=== PATIENT | female | born 1960 | race Caucasian/White ===

== ENCOUNTER 2016-10-25 05:41 | Day surgery (SDC) | payer MEDICARE ==
[2016-10-24 09:32] LABS: HEMATOCRIT 41.7 % (36.0-48.0); HEMOGLOBIN 13.5 g/dL (12-16); MCH 30.5 pg (26.0-34.0); MCHC 32.4 g/dL (31.0-37.0); MCV 94.3 fL (80.0-100.0); MEAN PLATELET VOLUME 14.3 fL (7.4-10.4); RBC 4.42 10x6/uL (4.00-5.40); RDW 13.4 % (11.5-14.5); WBC 5.6 10x3/uL (4.8-10.8)
[2016-10-24 09:39] LABS: ANION GAP 9.1 mmol/L (8-16); CALCIUM 8.8 mg/dL (8.5-10.1); CARBON DIOXIDE 33.1 mmol/L (21.0-32.0); CREATININE - SERUM 1.3 mg/dL (0.6-1.3); POTASSIUM - SERUM 3.2 mmol/L (3.5-5.1)
[~2016-10-25] VITALS: Ht 167.6 cm; Wt 81.2 kg
[~2016-10-25 05:41] MED LIST: ACTOS30 MG PO; ALENDRONATE SOD70 MG PO; BONTRIL SLOW-R105 MG PO; CELEXA10 MG PO; CELEXA40 MG PO; DEXILANT60 MG PO; DILAUDID4 MG PO; DILAUDID8 MG PO; FLUTICASONE PRO16 GM NASAL; GLIPIZIDE10 MG PO; GLUCOPHAGE1000 MG PO; GLUCOTROL 5 MG T5 MG PO; HUMALOG MIX 75/23 ML SC; HUMULIN N100 U/ML SC; LANTUS INSULIN10 ML SC; LASIX20 MG PO; LISINOPRIL5 MG PO; NEURONTIN 300300 MG PO; NORVASC10 MG PO; PLAVIX75 MG PO; PRAVACHOL20 MG PO; PRAVACHOL40 MG PO; PROAIR HFA8.5 GM INH; TANZEUM50 MG/0.5 SC; VALIUM5 MG PO; ZANAFLEX4 MG PO
[2016-10-25 07:55] VITALS: BP 127/70; Ht 167.6 cm; Wt 81.2 kg
[2016-10-25] MEDS ORDERED: DILAUDID2 MG PO (10:01)
--- NOTE | 2016-10-25 10:24 | NUR ---
SCOPE PATCH BEHIND LT EAR ON ADMIT
--- NOTE | 2016-10-25 11:39 | NUR ---
IV DC WITH CATHER TIP INTACT
--- NOTE | 2016-10-29 17:08 | OP ---
PATIENT NAME: ZACKERY MORAN MEDICAL RECORD: [id number] :58 LOCATION:[facility] ADMISSION DATE: SURGEON: ARACELI MCKEON MD DATE OF OPERATION: 10/25/2016 PREOPERATIVE DIAGNOSES: Impingement syndrome of the right shoulder with biceps tendinitis, right elbow arthritis and acromioclavicular arthritis. POSTOPERATIVE DIAGNOSES: Impingement syndrome of the right shoulder with biceps tendinitis, right elbow arthritis and acromioclavicular arthritis. PROCEDURES: 1. Arthroscopic biceps tenotomy, right shoulder. 2. Arthroscopic distal clavicle excision, right shoulder. 3. Arthroscopic subacromial decompression, acromioplasty and bursectomy. 4. Cortisone injection into the right shoulder. 5. Cortisone injection into the right elbow. OPERATIVE SUMMARY IN DETAIL: After obtaining the appropriate orthopedic surgery consents as well as anesthetic consultation, evaluation and clearance, the patient was brought to the operating room and placed on the operating table in supine position. After general laryngeal mask was administered, the patient was placed in left lateral decubitus position. All pressure points were well padded to include down leg peroneal pad as well as axillary roll. The patient was held firmly to the operating table using the vacuum pack suction system. Right upper extremity and shoulder were then prepped and draped in routine sterile fashion. The arm was held in the Arthrex traction boom at 30 degrees of forward flexion, 30 degrees of abduction, 10 pounds of traction laterally. Arthroscopy was established in the glenohumeral joint from a posterior portal. Anterior portal was established in the anterior safe interval. Diagnostic arthroscopy did reveal the above findings. Surface tissue ablation system was utilized to tenotomize the biceps tendon at the root given the patient's severe biceps tendinitis. Attention was then turned to the subacromial space. While on the subacromial space, the patient was found to have a large downward sloping acromion with excoriation of the coracoacromial ligament. Surface tissue ablation system was utilized to denude the undersurface of the acromion of all soft tissue elements. A 5-0 barrel tawnya was used to perform acromioplasty of the acromioclavicular joint. Under separate arthroscopic portal anteriorly with arthroscopic visualization, the distal clavicle was excised for 1 cm. Having completed this, arthroscopy portals were closed in routine interrupted fashion using a 4-0 Prolene. An 18-gauge needle was then placed into the shoulder joint and a combination of 40 mg Depo-Medrol and 5 cc of 0.25% Marcaine were injected into the shoulder. At this point, the elbow already having been prepped and draped, a 22-gauge needle was then used to inject the right elbow with the same 40 mg Depo-Medrol and 5 cc 0.25 % lidocaine. Having completed this, sterile dressings were applied. The patient was awakened and taken to the recovery room in stable condition. All final needle and sponge counts were correct. TRANSINT:[id number] Voice Confirmation ID: [id number] DOCUMENT ID: [id number] OPERATIVE REPORT [id number] ZACKERY MORAN MD, ARACELI COVINGTON at 1708 CC: [id number] DICTATION DATE: 10/25/16 1005 CLINICAL REVIEWER: 10/25/16 1052 [place] [facility] [place] [id number] [place] [address]
== END 2016-10-25 12:00 | disposition home or self-care (01) ==
LOC: D.OPS 05:41 → D.PAN 09:15 → D.OPS 10:05 → D.PAN 12:00
PROVIDERS: Anesthesiology
DX: M75.41 Impingement syndrome of right shoulder (principal); M75.21 Bicipital tendinitis, right shoulder; M13.811 Other specified arthritis, right shoulder; M13.821 Other specified arthritis, right elbow

== ENCOUNTER 2017-01-07 14:30 | Emergency (ER) | payer MEDICARE ==
[2016-10-25 07:55] VITALS: BMI 28.9
[~2017-01-07 14:30] MED LIST changes: +DILAUDID2 MG PO
== END 2017-01-07 16:27 | disposition left against medical advice (07) ==
LOC: D.ER 14:30
DX: I95.9 Hypotension, unspecified (principal); M54.2 Cervicalgia; E11.9 Type 2 diabetes mellitus without complications; J44.9 Chronic obstructive pulmonary disease, unspecified; I10 Essential (primary) hypertension

== ENCOUNTER 2017-12-12 07:53 | Day surgery (SDC) | payer MEDICARE ==
[2017-12-11 08:37] LABS: HEMATOCRIT 39.7 % (36.0-48.0); HEMOGLOBIN 12.6 g/dL (12-16); MCHC 31.7 g/dL (31.0-37.0); MCV 97.8 fL (80.0-100.0); MEAN PLATELET VOLUME 13.2 fL (7.4-10.4); RBC 4.06 10x6/uL (4.00-5.40); RDW 12.9 % (11.5-14.5); WBC 4.8 10x3/uL (4.8-10.8)
[2017-12-11 08:50] LABS: ANION GAP 10.3 mmol/L (8-16); CALCIUM 8.6 mg/dL (8.5-10.1); CARBON DIOXIDE 33.1 mmol/L (21.0-32.0); POTASSIUM - SERUM 3.4 mmol/L (3.5-5.1)
[~2017-12-12] VITALS: Ht 167.6 cm; Wt 79.4 kg
--- NOTE | ~2017-12-12 | OP ---
PATIENT NAME: ZACKERY MORAN MEDICAL RECORD: [id number] :58 LOCATION:D.OPS ADMISSION DATE: SURGEON: ARACELI MCKEON MD DATE OF OPERATION: 12/12/2017 PREOPERATIVE DIAGNOSIS: Impingement syndrome of the left shoulder. POSTOPERATIVE DIAGNOSES: Impingement syndrome of the left shoulder plus SLAP lesion. PROCEDURES: 1. Arthroscopic SLAP repair. 2. Arthroscopic distal clavicle excision done through separate incision -- 1 cm. 3. Arthroscopic subacromial decompression. SURGEON: Araceli Mckeon MD ANESTHESIA: General. INTRAOPERATIVE COMPLICATIONS: None. SUMMARY OF PATHOLOGIC FINDINGS: Upon entering the glenohumeral joint, the patient had a superior labral tear from anterior to posterior consistent with the patient's pain; however, not clearly seen on the preoperative MRI. The patient also had a downward sloping acromion with excoriation of the coracoacromial ligament and superficial rotator cuff abrasions, but not tearing, were noted. 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 OPERATIVE SUMMARY IN DETAIL: After obtaining the appropriate preoperative orthopedic surgery consent as well as anesthetic consultation, evaluation and clearance, the patient was brought to the operating room and placed on the operating table in supine position. After general laryngeal mask airway was administered, the patient was placed in left lateral decubitus position. All pressure points were well padded to include down leg peroneal pad as well as axillary roll. The patient was held firmly to the operating table using the vacuum pack suction system. Left upper and shoulder were then prepped and draped in routine sterile fashion. The arm was held in the Arthrex traction boom at 30 degrees of forward flexion, 30 degrees of abduction with 10 pounds of traction laterally. Arthroscopy was established in the glenohumeral joint from a posterior portal. Anterior portal was established in the anterior safe interval. Diagnostic arthroscopy showed the patient had the bicipital labral complex SLAP lesion as described above. Arthroscopic resector was utilized to decorticate the superior aspect of the glenoid for reattachment of the labrum. At this point, the 2 PushLocks were placed, 1 anterior and 1 posterior to the bicipital labral complex two 9 PushLocks were used with a labral tape to anchor the labrum back to the glenohumeral joint. Having completed this, attention was turned to the subacromial space. While on the subacromial space, the subacromial soft tissue was ablated and denuded and the arthroscopic bur was utilized to perform acromioplasty at the level of acromioclavicular joint. Having completed this, attention was turned to the distal clavicle. Through a separate anterior portal arthroscopy under direct arthroscopic visualization, distal clavicle was excised. Having OPERATIVE REPORT [id number] ZACKERY MORAN completed this, the residual of the bursa was removed anteriorly, posteriorly and laterally as well as superiorly. The rotator cuff was evaluated and found to have attritional changes, but no full thickness tearing seen on this side or the articular side on the surface. Having completed this, arthroscopy portals were closed in routine interrupted fashion using 4-0 Prolene. Sterile dressings were applied. The patient was awakened and taken to recovery room in stable condition. All final needle and sponge counts were correct. TRANSINT:[id number] Voice Confirmation ID: [id number] DOCUMENT ID: [id number] MIKE AKBAR, ARACELI COVINGTON at 1446 CC: [id number] DICTATION DATE: 12/12/17 1222 MACHINE PAINT MIXER: 12/12/17 1242 [facility] 12/12/17 [address] [place] [address]
[2017-12-12 07:53] VITALS: BP 144/74; Ht 167.6 cm; Wt 79.4 kg
[~2017-12-12 07:53] MED LIST changes: +ANORO ELLIPTA1 EACH INH; +HUMALOG KWIKPEN INJ; +HUMULIN N100 U/ML
[2017-12-12] MEDS ORDERED: DILAUDID4 MG PO (12:19)
== END 2017-12-12 14:00 | disposition home or self-care (01) ==
LOC: D.OPS 07:53 → D.PAN 09:45 → D.OPS 14:00
PROVIDERS: Anesthesiology
DX: S43.432A Superior glenoid labrum lesion of left shoulder, initial encounter (principal); M75.42 Impingement syndrome of left shoulder; I10 Essential (primary) hypertension; E11.9 Type 2 diabetes mellitus without complications; J44.9 Chronic obstructive pulmonary disease, unspecified; K21.9 Gastro-esophageal reflux disease without esophagitis; Z01.812 Encounter for preprocedural laboratory examination

== ENCOUNTER → 2017-12-19 14:10 | Outpatient (CLI) | payer MEDICARE ==
[2017-12-12 07:53] VITALS: BMI 28.3
== END | disposition home or self-care (01) ==
LOC: D.US 14:10
DX: R22.32 Localized swelling, mass and lump, left upper limb (principal)

== ENCOUNTER → 2018-05-13 15:40 | Outpatient (CLI) | payer MEDICARE ==
[2017-12-12 07:53] VITALS: BMI 28.3
[~2018-05-13 15:40] MED LIST changes: +DEMEROL100 MG PO; +FUROSEMIDE20 MG PO; -HUMULIN N100 U/ML; -LASIX20 MG PO; -NORVASC10 MG PO; +NORVASC5 MG PO; -PROAIR HFA8.5 GM INH; +VENTOLIN HFA18 GM INH
== END | disposition home or self-care (01) ==
LOC: D.MRI 15:40
DX: M25.512 Pain in left shoulder (principal)

== ENCOUNTER 2018-06-12 07:50 | Day surgery (SDC) | payer MEDICARE ==
[2018-06-11 08:52] LABS: HEMATOCRIT 40.7 % (36.0-48.0); HEMOGLOBIN 13.8 g/dL (12-16); MCH 31.9 pg (26.0-34.0); MCHC 33.9 g/dL (31.0-37.0); MEAN PLATELET VOLUME 13.5 fL (7.4-10.4); RBC 4.33 10x6/uL (4.00-5.40); RDW 12.6 % (11.5-14.5); WBC 6.4 10x3/uL (4.8-10.8)
[2018-06-11 09:11] LABS: ANION GAP 10.9 mmol/L (8-16); CALCIUM 8.9 mg/dL (8.5-10.1); CARBON DIOXIDE 31.5 mmol/L (21.0-32.0); CREATININE - SERUM 1.1 mg/dL (0.6-1.3); POTASSIUM - SERUM 3.4 mmol/L (3.5-5.1)
[~2018-06-12] VITALS: Ht 137.2 cm; Wt 88.0 kg
--- NOTE | ~2018-06-12 | OP ---
PATIENT NAME: ZACKERY MORAN MEDICAL RECORD: [id number] :58 LOCATION:[facility] ADMISSION DATE: SURGEON: ARACELI MCKEON MD DATE OF OPERATION: 06/12/2018 PREOPERATIVE DIAGNOSES: Recurrent shoulder pain of the left shoulder with recurrent impingement and recurrent SLAP lesion. POSTOPERATIVE DIAGNOSES: Recurrent shoulder pain of the left shoulder with recurrent impingement and recurrent SLAP lesion. PROCEDURES: 1. Arthroscopic biceps tenotomy. 2. Arthroscopic labral debridement. 3. Arthroscopic partial labrectomy 4. Arthroscopic subacromial decompression with acromioplasty and bursectomy. SURGEON: Araceli Mckeon MD ANESTHESIA: General. INTRAOPERATIVE COMPLICATIONS: None. SUMMARY OF PATHOLOGIC FINDINGS: Consistent with the preoperative diagnosis, the patient's previously repaired SLAP had pulled off anteriorly only. The posterior portion of the SLAP had healed nicely and the patient had substantial biceps tendinitis. For this reason, tenotomy was performed along with debridement of the anterior aspect of the labrum that was torn and loose. No specific chondromalacia at the glenohumeral joint was noted. No rotator cuff tear was seen. The patient did have either a missed or later recurrence of impingement of the acromion. OPERATIVE SUMMARY IN DETAIL: After obtaining the appropriate preoperative orthopedic surgery consent as well as anesthetic consultation, evaluation and clearance, the patient was brought to the operating room and placed on the operating table in supine position. After general laryngeal mask airway was administered, the patient was placed in a right lateral decubitus position. All pressure points were well padded to include down leg peroneal pad as well as axillary roll. The patient was held firmly to the operating table using the vacuum pack suction system. Left upper extremity and shoulder were then prepped and draped in routine sterile fashion. The arm was held in Arthrex traction boom at 30 degrees of forward flexion, 30 degrees of abduction, 10 pounds of traction laterally. Arthroscopy was established in the glenohumeral joint from the posterior portal. Anterior portal was established in the anterior safe interval. Diagnostic arthroscopy did reveal the above findings. A combination of meniscotomes as well as resector was utilized to debride both the FiberWire of the anchor as well as portions of the labrum anteriorly. An Worley tissue ablation system was then utilized to perform a tenotomy at the bicipital labral junction. Having completed this, attention was turned to the subacromial space. While in the subacromial space, the undersurface of the acromion was denuded of all soft tissue elements using the Worley tissue ablation system and then a 5.0 resector was utilized to raise the patient's previously made decompression especially laterally where it appeared to be impinging still. Having completed this, arthroscopy portals were closed in routine interrupted fashion using 4-0 Prolene. Sterile dressings were applied. The patient was awakened and taken to OPERATIVE REPORT [id number] ZACKERY MORAN the recovery room in stable condition. All final needle and sponge counts were correct. TRANSINT:[id number] Voice Confirmation ID: [id number] DOCUMENT ID: [id number] MIKE AKBAR, ARACELI COVINGTON at 0724 CC: [id number] DICTATION DATE: 06/13/18 0847 MOLECULAR SPECTROSCOPIST: 06/13/18 0926 [facility] 06/12/18 [id number] [place] [address]
[~2018-06-12 07:50] MED LIST changes: -DEMEROL100 MG PO
[2018-06-12 09:10] VITALS: BP 128/69; Ht 137.2 cm; Wt 88.0 kg
[2018-06-12] MEDS ORDERED: DEMEROL100 MG PO (13:36)
== END 2018-06-12 15:00 | disposition home or self-care (01) ==
LOC: D.OPS 07:50 → D.PAN 09:30 → D.OPS 09:45
PROVIDERS: Anesthesiology
DX: M75.42 Impingement syndrome of left shoulder (principal); S43.432A Superior glenoid labrum lesion of left shoulder, initial encounter; X58.XXXA Exposure to other specified factors, initial encounter; Z01.812 Encounter for preprocedural laboratory examination

== ENCOUNTER → 2019-02-13 12:23 | Outpatient (CLI) | payer MEDICARE ==
[2018-06-12 09:10] VITALS: BMI 46.9
[~2019-02-13 12:23] MED LIST changes: +DEMEROL100 MG PO
== END | disposition home or self-care (01) ==
LOC: D.MRI 12:23
PROVIDERS: ATTEND Orthopaedic Surgery
DX: M25.571 Pain in right ankle and joints of right foot (principal)

== ENCOUNTER 2019-07-30 09:05 | Day surgery (SDC) | payer MEDICARE ==
[2019-07-29 14:20] LABS: ANION GAP 13.1 mmol/L (8-16); CALCIUM 9.3 mg/dL (8.5-10.1); CARBON DIOXIDE 30.6 mmol/L (21.0-32.0); CREATININE - SERUM 1.1 mg/dL (0.6-1.3); POTASSIUM - SERUM 3.7 mmol/L (3.5-5.1)
[2019-07-29 14:43] LABS: HEMATOCRIT 42.2 % (36.0-48.0); HEMOGLOBIN 13.7 g/dL (12-16); MCH 30.9 pg (26.0-34.0); MCHC 32.5 g/dL (31.0-37.0); MCV 95.3 fL (80.0-100.0); MEAN PLATELET VOLUME 13.5 fL (7.4-10.4); RBC 4.43 10x6/uL (4.00-5.40); RDW 12.9 % (11.5-14.5)
[~2019-07-30] VITALS: Ht 167.6 cm; Wt 90.3 kg
[2019-07-30 11:39] VITALS: BP 120/62; Ht 167.6 cm; Wt 90.3 kg
--- NOTE | 2019-07-30 11:57 | NUR ---
SUICIDE SCREENING POSITIVE FOR LIFETIME, BUSINESS CONTROL MANAGER CALISTA CHUNG NOTIFIED.
[2019-07-30] MEDS ORDERED: DILAUDID2 MG PO (13:30)
--- NOTE | 2019-07-30 13:57 | NUR ---
ANESTHESIA AT BEDSIDE FOR REDO OF NERVE BLOCK
--- NOTE | 2019-07-30 14:44 | NUR ---
PATIENT STILL C/O PAIN 03/02. DR GONZALES AWARE CONTINUE WITH D/C TO OPD.
--- NOTE | 2019-07-30 15:50 | NUR ---
DR. LEO NOTIFIED AND REVIEWED PT'S BEHAVIOR AND ASSESSMENT RESULTS. PT IS A LOW RISK PER DR. LEO. DR. LEO STATED TO GIVE RESOURCES TO PT AT TIME OF DICHARGE. NO FURTHER ORDERS AT THIS TIME. RESOURCES REVIEWED WITH PT AND SHE VERBALIZIED UNDERSTANDING.
--- NOTE | 2019-07-30 17:51 | NUR ---
1453-REC'D FROM . DRESSING TO LEFT HIP AND LEFT KNEE CDI. ICE PACK TO BOTH AREAS. ABLE TO PALPATE PEDAL PULSE TO LEFT FOOT, STRONG AND REGULAR. CAP REFILL WNL, SKIN WARM AND DRY. SISTER AT BEDSIDE. CL IN EASY REACH.
--- NOTE | 2019-07-30 17:52 | NUR ---
1500-FULL LIQUID TRAY TO ROOM.
--- NOTE | 2019-07-30 17:53 | NUR ---
1633-PT NAUSEA AND VOMITTING X 2 AFTER ATTEMPTING TO SIT UP ON SIDE OF BED. ADMINISTERED ZOFRAN 4MG IVP. DRESSINGS X 2 CDI. STRONG PEDAL PULSE,CAP REFILL WNL,SKIN WDI.
--- NOTE | 2019-07-30 17:54 | NUR ---
1700-DISCHARGE CRITERIA MET. PAIN TOLERABLE AT 5/10. VSS. NO NAUSEA OR VOMITING. REMOVED IV FROM RIGHT HAND WITH CATH INTACT, DISPOSED INTO SHARPS.COVERED SITE WITH BANDAID. DRESSING TO LEFT HIP AND LEFT KNEE CDI,STRONG PEDAL PULSE,CAP REFILL WNL,SKIN WDI. REVIEWED POST OPERATIVE INSTRUCTIONS WITH PT. VERBALIZED UNDERSTANDING WITHOUT FURTHER QUESTIONS OR CONCERNS. ESCORTED OUT VIA W/C WITH SISTER AWAITING TO DRIVE HOME.
--- NOTE | 2019-07-31 08:21 | NUR ---
1640-TRANSFERED PT FROM BED INTO W/C X 1 ASSSIT WITHOUT COMPLICATIONS. PT ABLE TO STAND ON NON SURGICAL RIGHT LEG,PIVOT,AND TRANSFER. PUSHED TO RESTROOM PT STOOD,BEGAN TO TURN AND PIVOT TO HER LEFT,BECAME UNSTEADY AND KNELLED DOWN TO HER KNEES.I ASSISTED PT TO FLOOR DUE TO HER UNSTEADY AND UNABLE TO COMPLETE TRANSFER ONTO TOILET. CALLED OUT TO JOSE MARIA CANCHOLA. WE ASSISTED PT ONTO TOILET. NO OBVIOUS INJURIES ROM TO NON SURGICAL LEG WNL. STRONG RIGHT PEDAL PULSE. DRESSINGS TO BOTH INCISION SITES,LEFT HIP AND LEFT KNEE CDI. STRONG REGULAR LEFT PEDAL PULSE. PT REPORTS SHE KNEELED DOWN AFRAID SHE'D FALL AND DIDN'T WANT ME TO HURT MY BACK HELPING HER BECAUSE SHE WEIGHED ABOUT 200LBS. PT ABLE TO TRANSFER OFF TOILET INTO W/C X 2 ASSSIT WITHOUT ANY COMPLICATIONS. NOTIFIED RINA CROSS RN VENEER SAMPLE MAKER OF ABOVE ASSIST TO FLOOR.
--- NOTE | 2019-07-31 10:28 | NUR ---
LATE ENTRY 07/30/2019 1640 PT NO LONGER EXHIBITING NAUSEA OR VOMITING. VSS.REMOVED IV FROM RIGHT HAND WITH CATH INTACT, DISPOSED INTO SHARPS.COVERED SITE WITH BANDAID. REQUEST TO USE RESTROOM. TRANSFER X 1 ASSIST INTO W/C. PT ABLE TO PIVOT AND TRANSFER WITHOUT ANY DIFFICULTY. PUSHED PT INTO RESTROOM. DURING TRANSFER PT BECAME UNSTEADY AND NERVOUS LOWERING HERSELF I ASSISTED HER ONTO FLOOR, HER RIGHT KNEE ONLY TOUCHING FLOOR.CALLED OUT TO JOSE MARIA CANCHOLA. SHE AND I ASSISTED PT FROM FLOOR ONTO TOILET. ASSESSED PT WITHOUT ANY OBVIOUS INJURIES, DRESSING TO LEFT KNEE AND LEFT HIP CDI. DENIES ANY PAIN TO NON OPERATIVE LEG. PT REPORTS " I DIDN'T WANT YOU HURTING YOUR BACK I WEIGH ABOUT 200LBS" SO SHE LOWERED HERSELF TOWARDS THE GROUND. BILATERAL PEDAL PULSES STRONG AND REGULAR. CAP REFILL WNL. PT ABLE TO TRANSFER X 2 ASSSIT FROM TOILET BACK INTO W/C WITHOUT ANY DIFFICULTIES.
--- NOTE | 2019-07-31 10:44 | NUR ---
LATE ENTRY FOR 07/30/19 1700 DISCHARGE CRITERIA MET. REVIEWED POST OPERATIVE INSTRUCTIONS. DENIES INCREASED PAIN TO OPERATIVE SITE OR ANY OTHER PAIN SINCE BATHROOM INCIDENT. PT REPORTS SHE HAD 1 STANDARD WALKER AND 1 ARM REST WALKER AT HOME SHE WOULD BE USING FOR AMBULATION. ESCORTED OUT VIA W/C BY 2 STAFF MEMBERS WITH SISTER AWAITING TO DRIVE HOME. ABLE TO TRANSFER INTO VEHICLE X 1 ASSIST WITHOUT DIFFICULTIES.
--- NOTE | 2019-08-11 15:11 | OP ---
PATIENT NAME: ZACKERY MORAN MEDICAL RECORD: [id number] :58 LOCATION:[facility] ADMISSION DATE: SURGEON: ARACELI MCKEON MD DATE OF OPERATION: 07/30/2019 PREOPERATIVE DIAGNOSES: Iliotibial band syndrome with trochanteric bursitis. POSTOPERATIVE DIAGNOSES: Iliotibial band syndrome with trochanteric bursitis. PROCEDURE: Z-lengthening of the IT band. SURGEON: Araceli Mckeon MD ANESTHESIA: General. INTRAOPERATIVE COMPLICATIONS: None. SUMMARY OF PATHOLOGIC FINDINGS: Upon Z-lengthening at the end, the patient was found to have recurrent trochanteric bursitis. This was excised and the IT band was Z-lengthened. INDICATIONS: This 58-year-old female had 6 years of relief with her last Z-lengthening. I agreed to do it again and had told her that it would likely return over the course of the next 3-5 years. She gladly agreed the surgery as she has had 6 years of pain free. OPERATIVE SUMMARY IN DETAIL: After obtaining the appropriate preoperative orthopedic consent as well as anesthetic consultation, evaluation and clearance, the patient was brought to the operating room and placed on the operating table in supine position. After general laryngeal mask airway was administered, the patient was placed in a right lateral decubitus position. The left lower extremity and hip were then prepped and draped in the usual fashion. Previously utilized incision was incised. It was taken down to the level of the IT band, which was found to be completely healed from the previous surgery. Sutures were noted. Z-lengthening incision was performed from anterior to posterior. The IT band was reflected and the bursa underneath was found to be inflamed. This was taken down in its entirety. At this point, the distal and proximal aspect of the Z-lengthening were reapproximated using #2 FiberWire. This resulted in lengthening of the tendon with reapproximation. Wound was copiously irrigated and closed using #1 Vicryl, 2-0 Vicryl and skin cristine. Sterile dressings were applied. The patient was awakened and taken to recovery room in stable condition. All final needle and sponge counts were correct. TRANSINT:[id number] Voice Confirmation ID: [id number] DOCUMENT ID: [id number] ARACELI MCKEON MD at 8543 CC: [id number] DICTATION DATE: 08/11/19 0830 CARD PUNCHING MACHINE OPERATOR: 08/11/19 1025 [facility] [place] 07/30/19 [facility] [address] [id number]
== END 2019-07-30 17:00 | disposition home or self-care (01) ==
LOC: D.OPS 09:05 → D.PAN 12:00 → D.OPS 12:45 → D.PAN 14:05 → D.OPS 14:05
PROVIDERS: Anesthesiology; ATTEND Orthopaedic Surgery
DX: M76.32 Iliotibial band syndrome, left leg (principal); M70.62 Trochanteric bursitis, left hip

== ENCOUNTER 2019-07-31 11:35 | Emergency (ER) | payer MEDICARE ==
[~2019-07-31] VITALS: Ht 167.6 cm; Wt 90.5 kg
[2019-07-31 11:42] VITALS: Ht 167.6 cm; Wt 90.5 kg
[2019-07-31 13:45] VITALS: BP 163/71
== END 2019-07-31 14:10 | disposition home or self-care (01) ==
LOC: D.ER 11:35
DX: M25.511 Pain in right shoulder (principal); T14.8XXA Other injury of unspecified body region, initial encounter; W18.30XA Fall on same level, unspecified, initial encounter; M54.2 Cervicalgia; E11.9 Type 2 diabetes mellitus without complications; E78.5 Hyperlipidemia, unspecified; I10 Essential (primary) hypertension; J44.9 Chronic obstructive pulmonary disease, unspecified

== ENCOUNTER 2019-08-06 17:29 | Inpatient (IN) | payer MEDICARE ==
[~2019-08-06] VITALS: Ht 167.6 cm; Wt 86.4 kg
[2019-08-06 18:00] LABS: BASOPHILS 0.5 % (0-2); EOSINOPHILS 5.7 % (0-7); HEMATOCRIT 36.3 % (36.0-48.0); HEMOGLOBIN 11.8 g/dL (12-16); IMMATURE GRANULOCYTES 0.2 % (0-5); LYMPHOCYTES 28.4 % (15-50); MCH 31.1 pg (26.0-34.0); MCHC 32.5 g/dL (31.0-37.0); MCV 95.8 fL (80.0-100.0); MEAN PLATELET VOLUME 13.2 fL (7.4-10.4); MONOCYTES 10.8 % (2-11); NEUTROPHILS 54.4 % (40-80); PLATELET COUNT 166 10x3/uL (130-400); RBC 3.79 10x6/uL (4.00-5.40); RDW 12.7 % (11.5-14.5); WBC 6.4 10x3/uL (4.8-10.8)
[2019-08-06 18:11] LABS: ANION GAP 12.6 mmol/L (8-16); CALCIUM 8.4 mg/dL (8.5-10.1); CARBON DIOXIDE 30.8 mmol/L (21.0-32.0); CREATININE - SERUM 1.1 mg/dL (0.6-1.3); POTASSIUM - SERUM 3.4 mmol/L (3.5-5.1)
[2019-08-06 18:18] LABS: ALBUMIN 3.5 g/dL (3.4-5.0); BILIRUBIN - TOTAL 0.59 mg/dL (0.2-1.3); PROTEIN - SERUM 7.4 g/dL (6.4-8.2)
[2019-08-06 20:30] VITALS: BP 137/59
--- NOTE | 2019-08-06 20:30 | NUR ---
ULTRASOUND TO BEDSIDE.
[2019-08-06 21:25] VITALS: BP 130/66
[2019-08-06 22:24] VITALS: BP 130/68
--- NOTE | 2019-08-06 23:10 | NUR ---
ADMITTED TO ROOM ALERT AND ORIENTIATED, REPORTS SURGERY ON 7TH ON LEFT KNEE FOR CYST, HAS BRAULIO INTACT TO LEFT KNEE AND LEFT HIP WHERE SHE REPORTS HAD TENDON LENGTHENED, C/O PAIN MAINLY TO BACK REPORTS BACK SURGERY FEW MONTHS AGO AND TAKES DILAUDID AT HOME FOR PAIN, SEE ASSESSMENT, CALL LIGHT IN REACH , WILL CALL BECKI RAE APN FOR PAIN MEDICATIONS
[2019-08-07] VITALS (7 sets, daily range): BP systolic 103–138; BP diastolic 54–68; BMI 30.7
[2019-08-07 06:38] LABS: BASOPHILS 0.6 % (0-2); EOSINOPHILS 7.7 % (0-7); HEMATOCRIT 38.2 % (36.0-48.0); HEMOGLOBIN 12.2 g/dL (12-16); IMMATURE GRANULOCYTES 0.2 % (0-5); LYMPHOCYTES 43.2 % (15-50); MCH 30.7 pg (26.0-34.0); MCHC 31.9 g/dL (31.0-37.0); MEAN PLATELET VOLUME 13.9 fL (7.4-10.4); MONOCYTES 11.5 % (2-11); NEUTROPHILS 36.8 % (40-80); PLATELET COUNT 156 10x3/uL (130-400); RBC 3.98 10x6/uL (4.00-5.40); RDW 12.7 % (11.5-14.5); WBC 5.3 10x3/uL (4.8-10.8)
[2019-08-07 07:11] LABS: ALBUMIN 3.4 g/dL (3.4-5.0); ANION GAP 12.7 mmol/L (8-16); BILIRUBIN - TOTAL 0.59 mg/dL (0.2-1.3); CALCIUM 8.7 mg/dL (8.5-10.1); CARBON DIOXIDE 28.6 mmol/L (21.0-32.0); MAGNESIUM - SERUM 1.8 mg/dL (1.8-2.4); PHOSPHOROUS 5.1 mg/dL (2.5-4.9); POTASSIUM - SERUM 3.3 mmol/L (3.5-5.1); PROTEIN - SERUM 6.6 g/dL (6.4-8.2)
--- NOTE | 2019-08-07 07:35 | NUR ---
PT RESTING IN BED WATCHING TV. PT REPORTS PAIN 6/10 AT THIS TIME. DISCUSSED NEXT TIME PAIN MED TO BE ADMINISTERED PER MD ORDERS. PT VOICES UNDERSTANDING. SALINE LOC TO RIGHT HAND INTACT. SITE WITHOUT REDNESS OR EDEMA. BRAULIO INTACT TO LEFT HIP AND KNEE. BOTH AREAS, EDGES WELL APROXIMATED, NO REDNESS SWELLING OR DRAINAGE. PT DENIES FURTHER NEEDS AT THIS TIME. CL WITHIN REACH. ENCOURAGED TO CALL WITH NEEDS. CONTINUE POC
--- NOTE | 2019-08-07 15:34 | MORECARE ---
CASE MANAGEMENT DISCHARGE SUMMARY PATIENT: ZACKERY MORAN UNIT: [id number] ADM DATE: 08/06/19 AGE: 58 : 58 SEX: F ROOM/BED: D.[facility]5 AUTHOR: HALLEY ROMERO PHYSICIAN: REFERRING PHYSICIAN: MORENO TANG MD DATE OF SERVICE: 08/07/19 Discharge Plan Patient Name: ZACKERY MORAN Facility: [facility]:[place] : 1960 Planned Disposition: Home Anticipated Discharge Date: Discharge Date: Expected LOS: Initial Reviewer: [email or web address] Initial Review Date: 08/07/2019 Generated: 08/07/19 4:33 pm Patient Name: ZACKERY MORAN Page [id number] at 1534 All edits/amendments must be made on the electronic document DICTATION DATE: 08/07/191532 HOT BILLET SHEAR OPERATOR: DARWIN 08/07/19 153 RPT#: [id number] DC DATE: STATUS: ADM IN [facility] [address] [place] [address] END OF REPORT
--- NOTE | 2019-08-07 15:42 | MORECARE ---
CASE MANAGEMENT DISCHARGE SUMMARY PATIENT: ZACKERY MORAN UNIT: [id number] ADM DATE: 08/06/19 AGE: 58 : 58 SEX: F ROOM/BED: D.2235 AUTHOR: HEATHER,DOC PHYSICIAN: REFERRING PHYSICIAN: MORENO TANG MD DATE OF SERVICE: 08/07/19 Discharge Plan Patient Name: ZACKERY MORAN Facility: [facility]:[place] : 1960 Planned Disposition: Home Anticipated Discharge Date: Discharge Date: Expected LOS: Initial Reviewer: [email or web address] Initial Review Date: 08/07/2019 Generated: 08/07/19 4:42 pm Comments DCP- Discharge Planning Updated by [email or web address]: Sheri Guadarrama on 08/07/19 2:[address] Patient Name: ZACKERY MORAN Admission Status: ER Accout number: [id number] Admission Date: 08-06-2019 : 1960 Admission Diagnosis: Attending: MORENO TANG Current LOS: 1 Anticipated DC Date: Planned Disposition: Home Primary Insurance: MEDICARE A & B Discharge Planning Comments: CM met with patient to complete initial dc planning assessment. CM educated patient on the CM role and verbal consent given by patient to complete assessment. Patient lives at home alone. At discharge patient plans to return and feels this is a safe discharge. Patient states she is independent with all her care and checks her blood sugar independently at varied times, sometimes twice a day. CM discussed availability of home health, rehab services, and medical equipment. Patient denied known discharge needs at this time. She states her sister comes over -- to check on her and get her groceries. States she does have a prescription plan for her medications. CM will continue to follow and will assist as needed with dc plans/needs. Esthetician Makeup Artist: Sheri Guadarrama DCPIA - Discharge Planning Initial Assessment Updated by [email or web address]: Sheri Guadarrama on 08/07/19 3:36 pm * Is the patient Alert and Oriented? Yes * How many steps to enter\exit or inside your home? 4/0 * PCP Dr. Ramirez * Pharmacy [facility] * Preadmission Environment Home Alone * ADLs Independent * Equipment Crutch Glucometer Walker * List name and contact numbers for known caregivers / representatives who currently or will assist patient after discharge: Estelita márquez - [phone] * Verbal permission to speak to the caregivers and representatives has been obtained from the patient. Yes * Community resources currently utilized None * Additional services required to return to the preadmission environment? No * Can the patient safely return to the preadmission environment? Yes * Has this patient been hospitalized within the prior 30 days at any hospital? No Last DP export: 08/07/19 2:34 Patient Name: ZACKERY MORAN Page [id number] at 1542 All edits/amendments must be made on the electronic document DICTATION DATE: 08/07/191541 STRIPPING AND BOOKING MACHINE OPERATOR: DARWIN 08/07/191541 RPT#: [id number] DC DATE: STATUS: ADM IN [facility] [address] [place] [address] END OF REPORT
--- NOTE | 2019-08-07 19:00 | NUR ---
BEDSIDE REPORT RECEIVED AND CARE OF PT ASSUMED. PT SITTING UP IN BED TALKING ON PHONE. IV TO RIGHT HAND SALINE LOCKED. REVIEWED PAIN MEDS WITH PT AND TIMES SHE COULD HAVE THEM. GAVE DIET L[place]ON [place] SODA AND CUP OF ICE PER REQUEST.
--- NOTE | 2019-08-07 20:11 | NUR ---
HS MEDICATIONS GIVEN TO INCLUDE DILAUDID 1 MG IVP AND ZOFRAN 4 MG IVP FOR PAIN AND NAUSEA. FSBS 147 THIS CHECK REQUIRING NO COVERAGE PER SLIDING SCALE. WILL CONTINUE TO MONITOR FOR NEEDS.
[2019-08-08] VITALS: BP 120/69
--- NOTE | 2019-08-08 00:03 | NUR ---
GAVE DILAUDID IVP AND ZOFRAN IVP PER PT REQUEST FOR PAIN AND NAUSEA, PER PRN ORDERS. WILL MONITOR FOR EFFECTIVENESS.
[2019-08-08 04:00] VITALS: BP 146/56
[2019-08-08 06:46] LABS: BASOPHILS 0.8 % (0-2); EOSINOPHILS 6.3 % (0-7); HEMOGLOBIN 11.9 g/dL (12-16); IMMATURE GRANULOCYTES 0.2 % (0-5); LYMPHOCYTES 47.7 % (15-50); MCH 30.6 pg (26.0-34.0); MCHC 31.3 g/dL (31.0-37.0); MCV 97.7 fL (80.0-100.0); MEAN PLATELET VOLUME 13.8 fL (7.4-10.4); MONOCYTES 12.9 % (2-11); NEUTROPHILS 32.1 % (40-80); PLATELET COUNT 159 10x3/uL (130-400); RBC 3.89 10x6/uL (4.00-5.40); WBC 5.1 10x3/uL (4.8-10.8)
[2019-08-08 06:50] LABS: ANION GAP 12.5 mmol/L (8-16); CALCIUM 8.8 mg/dL (8.5-10.1); CARBON DIOXIDE 29.1 mmol/L (21.0-32.0); CREATININE - SERUM 1.1 mg/dL (0.6-1.3); MAGNESIUM - SERUM 1.9 mg/dL (1.8-2.4); PHOSPHOROUS 4.7 mg/dL (2.5-4.9); POTASSIUM - SERUM 3.6 mmol/L (3.5-5.1)
[2019-08-08 08:45] VITALS: BP 126/62
[2019-08-08 10:54] VITALS: Ht 167.6 cm; Wt 86.4 kg
[2019-08-08] MEDS ORDERED: ELIQUIS5 MG PO (12:25)
[2019-08-08 12:32] VITALS: BP 110/64
--- NOTE | 2019-08-08 15:00 | NUR ---
PT WAS REQUESTING TO SPEAK WITH SOMEONE REGARDING FALL DURING PREVIOUS ADMISSION. SPOKE WITH MILL ORDER SCHEDULER, SHE WAS PLANNING TO SPEAK WITH PT. WITHIN MINUTES PT WAS STANDING AT THE NURSES STATION WANTING HER DC PAPERS. I INFORMED THE PT THAT MILL ORDER SCHEDULER WAS NOTIFIED AND COMING TO SPEAK WITH HER. SHE SAID THAT THEY COULD CALL HER BECAUSE SHE WAS LEAVING. IV TO RIGHT HAND DC'D, TIP INTACT. DISCHARGE PAPERWORK SIGNED, ALL QUESTIONS ANSWERED. ESCORTED OUT BY WHEELCHAIR.
--- NOTE | 2019-08-10 14:19 | MORECARE ---
CASE MANAGEMENT DISCHARGE SUMMARY PATIENT: ZACKERY MORAN UNIT: [id number] ADM DATE: 08/06/19 AGE: 58 : 58 SEX: F ROOM/BED: D.2235 AUTHOR: HEATHER,DOC PHYSICIAN: REFERRING PHYSICIAN: MORENO TANG MD DATE OF SERVICE: 08/10/19 Discharge Plan Patient Name: ZACKERY MORAN Facility: [facility]:[place] : 1960 Planned Disposition: Home Anticipated Discharge Date: Discharge Date: 08/08/2019 Expected LOS: Initial Reviewer: [email or web address] Initial Review Date: 08/07/2019 Generated: 08/10/19 3:18 pm Comments DCP- Discharge Planning Updated by [email or web address]: Sheri Guadarrama on 08/07/19 2:[address] Patient Name: ZACKERY MORAN Admission Status: ER Accout number: [id number] Admission Date: 08-06-2019 : 1960 Admission Diagnosis: Attending: MORENO TANG Current LOS: 1 Anticipated DC Date: Planned Disposition: Home Primary Insurance: MEDICARE A & B Discharge Planning Comments: CM met with patient to complete initial dc planning assessment. CM educated patient on the CM role and verbal consent given by patient to complete assessment. Patient lives at home alone. At discharge patient plans to return and feels this is a safe discharge. Patient states she is independent with all her care and checks her blood sugar independently at varied times, sometimes twice a day. CM discussed availability of home health, rehab services, and medical equipment. Patient denied known discharge needs at this time. She states her sister comes over - to check on her and get her groceries. States she does have a prescription plan for her medications. CM will continue to follow and will assist as needed with dc plans/needs. K9 Handler: Sheri Guadarrama DCPIA - Discharge Planning Initial Assessment Updated by [email or web address]: Sheri Guadarrama on 08/07/19 3:36 pm * Is the patient Alert and Oriented? Yes * How many steps to enter\exit or inside your home? 4/0 * PCP Dr. Ramirez * Pharmacy [facility] * Preadmission Environment Home Alone * ADLs Independent * Equipment Crutch Glucometer Walker * List name and contact numbers for known caregivers / representatives who currently or will assist patient after discharge: Estelita márquez - [phone] * Verbal permission to speak to the caregivers and representatives has been obtained from the patient. Yes * Community resources currently utilized None * Additional services required to return to the preadmission environment? No * Can the patient safely return to the preadmission environment? Yes * Has this patient been hospitalized within the prior 30 days at any hospital? No Last DP export: 08/07/19 2:42 Patient Name: ZACKERY MORAN Page [phone] at 1419 All edits/amendments must be made on the electronic document DICTATION DATE: 08/10/191417 FLATWORK FINISHER HAND: DARWIN 08/10/191417 RPT#: [id number] DC DATE:08/08/19 STATUS: DIS IN [facility] [address] [place] [address] END OF REPORT
== END 2019-08-08 15:04 | disposition home or self-care (01) | DRG 300 ==
LOC: D.ER 17:29 → D.MS 21:53
PROVIDERS: Family Medicine; ADMIT Internal Medicine Nephrology; ATTEND Internal Medicine Nephrology
DX: I82.4Z2 Acute embolism and thrombosis of unspecified deep veins of left distal lower extremity (principal); F33.1 Major depressive disorder, recurrent, moderate; I11.0 Hypertensive heart disease with heart failure; I50.9 Heart failure, unspecified; E78.5 Hyperlipidemia, unspecified; E11.9 Type 2 diabetes mellitus without complications; J44.9 Chronic obstructive pulmonary disease, unspecified; G89.29 Other chronic pain; K21.9 Gastro-esophageal reflux disease without esophagitis; F32.9 Major depressive disorder, single episode, unspecified; E87.6 Hypokalemia

== ENCOUNTER 2019-10-16 14:21 | Inpatient (IN) | payer MEDICARE ==
[~2019-10-16] VITALS: Ht 167.6 cm; Wt 82.6 kg
[~2019-10-16 14:21] MED LIST changes: +ELIQUIS5 MG PO
[2019-10-16] MEDS ORDERED: LIPITOR20 MG PO (15:02)
[2019-10-16] MEDS ORDERED: BYDUREON P2 MG/0.65 SC (15:02)
[2019-10-16] MEDS ORDERED: DEXILANT60 MG PO (15:03)
[2019-10-16] MEDS ORDERED: IPRAT-ALBUT 0.5-3 ML UPD (15:04)
[2019-10-16] MEDS ORDERED: HUMALOG MIX 75/23 ML SC (15:08)
[2019-10-16] MEDS ORDERED: HUMULIN N100 U/ML SC (15:12)
[2019-10-16] MEDS ORDERED: ATARAX 25 MG TA25 MG PO (15:13)
[2019-10-16 15:14] LABS: KETONE - SERUM NEGATIVE (NEGATIVE)
[2019-10-16] MEDS ORDERED: MUCINEX600 MG PO (15:14)
[2019-10-16] MEDS ORDERED: PIOGLITAZONE15 MG PO (15:14)
[2019-10-16] MEDS ORDERED: EFFEXOR37.5 MG PO (15:15)
[2019-10-16] MEDS ORDERED: SYMBICORT 16010.2 GM INH (15:15)
[2019-10-16] MEDS ORDERED: TRULICITY0.75 MG/0. SC (15:15)
[2019-10-16] MEDS ORDERED: VALTREX1000 MG PO (15:16)
[2019-10-16 15:19] LABS: CALC OSMOLALITY 281 mosm/kg (275-300); CALCIUM 8.7 mg/dL (8.5-10.1); CARBON DIOXIDE 32.8 mmol/L (21.0-32.0); CHLORIDE - SERUM 100 mmol/L (98-107); CREATININE - SERUM 1.4 mg/dL (0.6-1.3); GLUCOSE 130 mg/dL (74-106); POTASSIUM - SERUM 3.3 mmol/L (3.5-5.1); SODIUM 140 mmol/L (136-145); UREA NITROGEN 16 mg/dL (7-18); eGFR NON AFRICAN AMERICAN 41 mL/min (90-120)
[2019-10-16 15:20] LABS: BASOPHILS 0.3 % (0-2); EOSINOPHILS 1.4 % (0-7); HEMOGLOBIN 13.7 g/dL (12-16); IMMATURE GRANULOCYTES 0.2 % (0-5); LYMPHOCYTES 31.3 % (15-50); MCH 31.3 pg (26.0-34.0); MCHC 33.4 g/dL (31.0-37.0); MCV 93.6 fL (80.0-100.0); MONOCYTES 7.4 % (2-11); NEUTROPHILS 59.4 % (40-80); PLATELET COUNT 177 10x3/uL (130-400); RBC 4.38 10x6/uL (4.00-5.40); WBC 6.4 10x3/uL (4.8-10.8)
[2019-10-16 15:24] LABS: ALKALINE PHOSPHATASE 109 U/L (46-116); ALT (SGPT) 20 U/L (10-68); BILIRUBIN - TOTAL 0.42 mg/dL (0.2-1.3); MAGNESIUM - SERUM 1.9 mg/dL (1.8-2.4); PROTEIN - SERUM 7.5 g/dL (6.4-8.2)
[2019-10-16 15:53] LABS: APPEARANCE CLEAR (CLEAR); BILIRUBIN NEGATIVE (NEGATIVE); COLOR YELLOW (YELLOW); GLUCOSE NEGATIVE (NEGATIVE); KETONE NEGATIVE (NEGATIVE); NITRITE NEGATIVE (NEGATIVE); PROTEIN NEGATIVE (NEGATIVE); UROBILINOGEN NORMAL (NORMAL)
[2019-10-16 17:41] LABS: AMYLASE - SERUM 41 U/L (25-115); LIPASE 140 U/L (73-393)
--- NOTE | 2019-10-16 20:09 | NUR ---
AWAKE,ALERT,ORIENTED.NO COMPLAITNS AT PRESENT. IV TO LFA INTACT WITHOUT REDNESS OR EDEMA NOTED.CLIPS INTACT TO MID ABD INCISION WIHTOUT REDNESS OR EDMA NOTED. CL IN REACH
--- NOTE | 2019-10-16 20:44 | NUR ---
RECEIVED TO ROOM. ALERT,ORIENTED. IV TO RIGHT AND LEFT AC INTACT WITHOUT REDNESS OR EDEMA NOTED. ORIENTED TO ROOM. CL IN REACH
[2019-10-17] VITALS (7 sets, daily range): BP systolic 100–134; BP diastolic 54–76; Ht 167.6 cm; Wt 82.6 kg
[2019-10-17 06:08] LABS: BASOPHILS 0.2 % (0-2); EOSINOPHILS 2.9 % (0-7); HEMATOCRIT 36.6 % (36.0-48.0); HEMOGLOBIN 11.8 g/dL (12-16); LYMPHOCYTES 50.4 % (15-50); MCH 30.2 pg (26.0-34.0); MCHC 32.2 g/dL (31.0-37.0); MCV 93.6 fL (80.0-100.0); MEAN PLATELET VOLUME 13.8 fL (7.4-10.4); MONOCYTES 8.6 % (2-11); NEUTROPHILS 37.9 % (40-80); PLATELET COUNT 148 10x3/uL (130-400); RBC 3.91 10x6/uL (4.00-5.40); RDW 13.5 % (11.5-14.5)
[2019-10-17 06:15] LABS: WBC 4.2 10x3/uL (4.8-10.8)
[2019-10-17 06:43] LABS: ANION GAP 11.6 mmol/L (8-16); CALCIUM 7.8 mg/dL (8.5-10.1); CARBON DIOXIDE 29.4 mmol/L (21.0-32.0); CREATININE - SERUM 1.1 mg/dL (0.6-1.3); MAGNESIUM - SERUM 1.8 mg/dL (1.8-2.4)
--- NOTE | 2019-10-17 08:00 | NUR ---
ALERT AND ORIENTED X4 BOWEL SOUNDS HYPOACTIVE TO BLQ ANTERIOR. PEDAL PULSES NOTED W/O PERIPHERAL EDEMA NOTED. IVF INFUSING TO RT.A/C AT PRESCRIBING RATE. DENIES ANY N/V AT THIS TIME WITH FLATULANCE. POTASSIUM REPLACEMENT PER PROTOCOL. ENCOURAGED TO USE CALL LIGHT FOR ASSIST.
--- NOTE | 2019-10-17 23:09 | NUR ---
LYING QUEITLY WATCHING TV. NO COMPLIANTS VOICED. RESP EVEN AND UNALBORED. NO DISTRESS NOTED. IV TO RAC INTACT WITHOUT REDNESS OR EDEMA NOTED. SL TO LAC INTACT. CL IN REACH
[2019-10-18] VITALS: BP 130/60
[2019-10-18 04:00] VITALS: BP 120/60
[2019-10-18 06:48] LABS: BASOPHILS 0.5 % (0-2); EOSINOPHILS 4.9 % (0-7); HEMATOCRIT 35.1 % (36.0-48.0); HEMOGLOBIN 11.3 g/dL (12-16); LYMPHOCYTES 45.9 % (15-50); MCHC 32.2 g/dL (31.0-37.0); MCV 93.1 fL (80.0-100.0); MEAN PLATELET VOLUME 13.3 fL (7.4-10.4); MONOCYTES 8.2 % (2-11); NEUTROPHILS 40.5 % (40-80); PLATELET COUNT 142 10x3/uL (130-400); RBC 3.77 10x6/uL (4.00-5.40); RDW 13.4 % (11.5-14.5); WBC 4.3 10x3/uL (4.8-10.8)
[2019-10-18 06:52] LABS: ANION GAP 11.6 mmol/L (8-16); CALCIUM 8.5 mg/dL (8.5-10.1); CARBON DIOXIDE 25.9 mmol/L (21.0-32.0); CREATININE - SERUM 0.9 mg/dL (0.6-1.3); POTASSIUM - SERUM 3.5 mmol/L (3.5-5.1)
--- NOTE | 2019-10-18 08:29 | NUR ---
ALERT AND ORIENTED X4 AND REMAINS NPO EXCEPT FOR SIPS OF WATER WITH MEDS. INSTRUCTED ON NEED FOR STOOL SPECEMIN AND VERBALIZED UNDERSTANDING. ABDOMEN SOFT AND NONTENDER ON PALPATION WITH BOWEL SOUNDS HYPOACTIVE. UP ADLIB. IV TO LEFT AND RT. A/C INFUSING AT PRESCRIBED RATE. PEDAL PULSES NOTED WITH NO S/S OF DVT. LUNGS CTA AND HRRR. ENCOURAGED TO USE CALL LIGHT FOR ASSSIT.DENIES ANY PAIN OR DISCOMFORT.
[2019-10-18 08:55] VITALS: BP 113/58
[2019-10-18 14:15] VITALS: BP 119/59
[2019-10-18 19:08] VITALS: BP 112/56
[2019-10-18 22:04] VITALS: BP 118/59
[2019-10-19 00:48] VITALS: BP 130/67
[2019-10-19 01:17] VITALS: BP 130/67
--- NOTE | 2019-10-19 02:04 | NUR ---
PT REFUSED IV FLAGYL. STATES "THEY STOPPED ALL OF THAT BECAUSE I'M GOING HOME TOMORROW. IT IS CAUSING ME TO SWELL." I EXPLAINED TO HER EVEN THOUGH SHE WAS SALINE LOCKED SHE CAN STILL GET HER IV MEDS AND PHYSICIAN HAS NOT D/C'S THEM YET. PT STILL REFUSED. SAID SHE DIDN'T SEE THE SENSE IN IT SINCE SHE'S GOING HOME THIS MORNING. DELETED EMAR SCAN AND [facility].
[2019-10-19 04:55] LABS: BASOPHILS 0.7 % (0-2); EOSINOPHILS 5.5 % (0-7); HEMATOCRIT 35.7 % (36.0-48.0); HEMOGLOBIN 11.8 g/dL (12-16); IMMATURE GRANULOCYTES 0.2 % (0-5); LYMPHOCYTES 45.3 % (15-50); MCH 30.6 pg (26.0-34.0); MCHC 33.1 g/dL (31.0-37.0); MCV 92.5 fL (80.0-100.0); MEAN PLATELET VOLUME 14.2 fL (7.4-10.4); MONOCYTES 8.3 % (2-11); PLATELET COUNT 143 10x3/uL (130-400); RBC 3.86 10x6/uL (4.00-5.40); RDW 13.5 % (11.5-14.5); WBC 4.2 10x3/uL (4.8-10.8)
[2019-10-19 05:18] LABS: ANION GAP 10.6 mmol/L (8-16); CALCIUM 8.3 mg/dL (8.5-10.1); CARBON DIOXIDE 28.7 mmol/L (21.0-32.0); MAGNESIUM - SERUM 1.8 mg/dL (1.8-2.4); POTASSIUM - SERUM 3.3 mmol/L (3.5-5.1)
[2019-10-19 06:20] VITALS: BP 118/58
--- NOTE | 2019-10-19 06:33 | NUR ---
PT TOLERATED FULL LIQUIDS DURING NIGHT. ADVANCED DIET TO DIABETIC DIET FOR BREAKFAST PER ORDER.
--- NOTE | 2019-10-19 08:20 | NUR ---
PT RESTING QUIETLY IN BED. RESP EVEN AND UNLABORED. PT REPORTS PAIN 7/10 AT THIS TIME. PAIN MEDICATIONS ADMINISTERED PER MD ORDERS. SALINE LOC TO RIGHT AC. PT REQUEST SALINE LOC TO LEFT AC BE DISCONTINUED. SALINE LOC DISCONTINUED CATH INTACT. PT DOES VOICE ABDOMINAL CRAMPING, BUT VOICES TOLERATING BREAKFAST WELL, WITHOUT NAUSEA. PT DENIES FURTHER NEEDS AT THIS TIME. CL WITHIN REACH. ENCOURAGED TO CALL WITH NEEDS. CONTINUE POC
[2019-10-19 09:09] VITALS: BP 131/56
[2019-10-19] MEDS ORDERED: LEVAQUIN750 MG PO (10:27)
[2019-10-19] MEDS ORDERED: FLAGYL500 MG PO (10:28)
[2019-10-19] MEDS ORDERED: ELIQUIS5 MG PO (12:07)
[2019-10-19 12:49] VITALS: BP 121/52
--- NOTE | 2019-10-19 12:50 | MORECARE ---
CASE MANAGEMENT DISCHARGE SUMMARY PATIENT: ZACKERY MORAN UNIT: [id number] ADM DATE: 10/16/19 AGE: 58 : 58 SEX: F ROOM/BED: D.2202 AUTHOR: HEATHERDOC PHYSICIAN: REFERRING PHYSICIAN: SYMONE CHENG MD DATE OF SERVICE: 10/19/19 Discharge Plan Patient Name: ZACKERY MORAN Facility: [facility]:[place] : 1960 Planned Disposition: Home or Self Care Anticipated Discharge Date: Discharge Date: Expected LOS: Initial Reviewer: [email or web address] Initial Review Date: 10/16/2019 Generated: 10/19/19 1:50 pm Comments DCP- Discharge Planning Updated by [email or web address]: Erin Fierro on 10/19/19 11:[address] Patient Name: ZACKERY MORAN Admission Status: ER Accout number: [id number] Admission Date: 10-16-2019 : 1960 Admission Diagnosis: Attending: SKYLAR, Current LOS: 3 Anticipated DC Date: Planned Disposition: Home or Self Care Primary Insurance: MEDICARE A & B Discharge Planning Comments: CM met with patient to complete initial dc planning assessment. CM educated patient on the CM role and verbal consent given by patient to complete assessment. Patient lives at home where she is independent with her care. At discharge patient plans to return home and feels this is a safe discharge. CM discussed availability of home health, rehab services, and medical equipment. She did not want home health. She has arm braces with canes, walker, wheelchair. 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 IMM served and explained. Patient denied known discharge needs at this time. CM will continue to follow and will assist as needed with dc plans/needs. Sheet Taker: Erin Fierro DCPIA - Discharge Planning Initial Assessment Updated by [email or web address]: Erin Fierro on 10/19/19 12:45 pm * Is the patient Alert and Oriented? Yes * How many steps to enter\exit or inside your home? * PCP CHRISTINA * Pharmacy [facility] * Preadmission Environment Home Alone * ADLs Independent * Equipment Other Walker Wheelchair * Other Equipment CRUTCHES WITH ARM SUPPORTS LIKE BRACES * List name and contact numbers for known caregivers / representatives who currently or will assist patient after discharge: RENEE HAYNES [phone] * Verbal permission to speak to the caregivers and representatives has been obtained from the patient. N/A * Community resources currently utilized None * Additional services required to return to the preadmission environment? No * Can the patient safely return to the preadmission environment? Yes * Has this patient been hospitalized within the prior 30 days at any hospital? No Coverage Notice Reviewer: [email or web address] Aaliyah Fierro Notice Issued Date-Time: 10/19/2019 12:40 Notice Type: IM Discharge Notice Notice Delivered To: Patient Relationship to Patient: Admissions Gate Attendant Name: Delivery Method: HAND - Hand Delivered Ines Days: Prior Verbal Notification: Recipient Understood Notice: Yes Recipient Signature: Yes Med Rec Note Co-signed by Attending: Coverage Notice Comment: Patient Name: ZACKERY MORAN Page [id number] at 1250 All edits/amendments must be made on the electronic document DICTATION DATE: 10/19/19 1250 SHIPBUILDING DRAFTSPERSON: DARWIN 10/19/19 1250 RPT#: [id number] DC DATE: STATUS: ADM IN [facility] [address] [place] [address] END OF REPORT
--- NOTE | 2019-10-20 13:25 | MORECARE ---
CASE MANAGEMENT DISCHARGE SUMMARY PATIENT: ZACKERY MORAN UNIT: [id number] ADM DATE: 10/16/19 AGE: 58 : 58 SEX: F ROOM/BED: D.2202 AUTHOR: HEATHER,DOC PHYSICIAN: REFERRING PHYSICIAN: SYMONE CHENG MD DATE OF SERVICE: 10/20/19 Discharge Plan Patient Name: ZACKERY MORAN Facility: [facility]:[place] : 1960 Planned Disposition: Home or Self Care Anticipated Discharge Date: Discharge Date: 10/19/2019 Expected LOS: 0 Initial Reviewer: [email or web address] Initial Review Date: 10/16/2019 Generated: 10/20/19 2:25 pm Comments DCP- Discharge Planning Updated by [email or web address]: Erin Fierro on 10/19/19 11:[address] Patient Name: ZACKERY MORAN Admission Status: ER Accout number: [id number] Admission Date: 10-16-2019 : 1960 Admission Diagnosis: Attending: SKYLAR, Current LOS: 3 Anticipated DC Date: Planned Disposition: Home or Self Care Primary Insurance: MEDICARE A & B Discharge Planning Comments: CM met with patient to complete initial dc planning assessment. CM educated patient on the CM role and verbal consent given by patient to complete assessment. Patient lives at home where she is independent with her care. At discharge patient plans to return home and feels this is a safe discharge. CM discussed availability of home health, rehab services, and medical equipment. She did not want home health. She has arm braces with canes, walker, wheelchair. 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 IMM served and explained. Patient denied known discharge needs at this time. CM will continue to follow and will assist as needed with dc plans/needs. Rn Advice: Erin Fierro DCPIA - Discharge Planning Initial Assessment Updated by [email or web address]: Erin Fierro on 10/19/19 12:45 pm * Is the patient Alert and Oriented? Yes * How many steps to enter\exit or inside your home? * PCP CHRISTINA * Pharmacy [facility] * Preadmission Environment Home Alone * ADLs Independent * Equipment Other Walker Wheelchair * Other Equipment CRUTCHES WITH ARM SUPPORTS LIKE BRACES * List name and contact numbers for known caregivers / representatives who currently or will assist patient after discharge: RENEE HAYNES [phone] * Verbal permission to speak to the caregivers and representatives has been obtained from the patient. N/A * Community resources currently utilized None * Additional services required to return to the preadmission environment? No * Can the patient safely return to the preadmission environment? Yes * Has this patient been hospitalized within the prior 30 days at any hospital? No Coverage Notice Reviewer: [email or web address] Aaliyah Fierro Notice Issued Date-Time: 10/19/2019 12:40 Notice Type: IM Discharge Notice Notice Delivered To: Patient Relationship to Patient: Master Planner Name: Delivery Method: HAND - Hand Delivered Ines Days: Prior Verbal Notification: Recipient Understood Notice: Yes Recipient Signature: Yes Med Rec Note Co-signed by Attending: Coverage Notice Comment: Last DP export: 10/19/19 11:50 a Patient Name: ZACKERY MORAN Page [phone] at 1325 All edits/amendments must be made on the electronic document DICTATION DATE: 10/20/19 1325 COMMUNICATIONS ENGINEERING TECHNICIAN: DARWIN 10/20/19 1325 RPT#: [id number] DC DATE:10/19/19 STATUS: DIS IN [facility] [address] [place] [address] END OF REPORT
[2019-10-21 03:07] LABS: OVA + PARASITE EXAM Final report (())
== END 2019-10-19 14:42 | disposition home or self-care (01) | DRG 392 ==
LOC: D.ER 14:21 → D.MS 17:33
PROVIDERS: Family Medicine; Internal Medicine Nephrology; ADMIT Family Medicine; ATTEND Family Medicine
DX: K52.9 Noninfective gastroenteritis and colitis, unspecified (principal); K59.00 Constipation, unspecified; E11.65 Type 2 diabetes mellitus with hyperglycemia; E87.6 Hypokalemia; E78.5 Hyperlipidemia, unspecified; J44.9 Chronic obstructive pulmonary disease, unspecified; G89.29 Other chronic pain